=== PATIENT | female | born 1950 | race Caucasian/White ===

== ENCOUNTER → 2020-05-29 | Outpatient (CLI) | payer OTHER ==
[~2020-05-29] MED LIST: ALDACTONE25 MG PO; ATENOLOL 25 MG25 M1 PO; BLOOD PRESSURE MEDS; DEXILANT60 MG PO; ENALAPRIL MALEAT5 M1 PO; FEMRING1 EAC1 VAG; FEMRING1 EAC1 VG; IBUPROFEN 400400 M1 PO; KLOR-CON 1010 MEQ PO; LACTASE 3000U T1 TA1 PO; LORTAB PO; MULTIVITAMINS PO; PROGESTERONE MICRONI; TAGAMETTAB PO; VITAMIN D1000 UNI1 PO; ZOCOR 20 MG TAB20 M1 PO; ZOLOFT25 MG PO
== END ==
LOC: LAB 11:09
PROVIDERS: ATTEND Anesthesiology
DX: Z01.818 Encounter for other preprocedural examination (principal); Z11.59 Encounter for screening for other viral diseases